=== PATIENT | female | born 1975 | race Caucasian/White ===

== ENCOUNTER 2018-04-27 05:55 | Observation (INO) | payer OTHER, BC ==
[2018-04-17 16:03] VITALS: BMI 29.0
[~2018-04-27] VITALS: Ht 167.6 cm; Wt 82.0 kg
[2018-04-27] VITALS (15 sets, daily range): BP systolic 117–138; BP diastolic 72–86; PULSE 57–87; TEMP 36.4–36.9; O2SAT 97–100; Ht 167.6 cm; Wt 82.0 kg
[~2018-04-27 05:55] MED LIST: CYCL5TAB PO; NAPR-1231 PO
[2018-04-27] MEDS ORDERED: CeleBREX 200 MG CAP PO SCH (06:00)
[2018-04-27] MEDS ORDERED: GABAPENTIN 900 MG PO SCH (06:00)
[2018-04-27] MEDS ORDERED: LACTATED RINGER'S 1000ML 1,000 ML IV SCH (06:00)
[2018-04-27] MEDS ORDERED: ACETAMINOPHEN 500 MG TAB PO SCH (06:00)
[2018-04-27] MEDS ORDERED: CEFAZOLIN 2000MG IV PUSH 15 ML IV SCH (06:00)
[2018-04-27] MEDS ORDERED: MIDAZOLAM HCL 1 MG/ML 2ML VIAL ONE (06:57)
[2018-04-27] MEDS ORDERED: FENTANYL CITRATE INJ 50 MCG/1 ML 2 ML VIAL ONE ×4 (06:57→09:11)
[2018-04-27] MEDS ORDERED: BACITRACIN 50000 UNIT VIAL ONE (07:08)
--- NOTE | 2018-04-27 07:40 | History & Physical Bridge Note ---
H&P Re-Evaluation Bridge Note: I have examined the patient, reviewed the History & Physical and in the interval since the performance of the History & Physical I have noted the following changes of clinical significance: No changes noted
--- NOTE | 2018-04-27 07:42 | History and Physical ---
History & Physical Date Apr 27, 2018. Chief Complaint Neck and arm pain History of Present Illness The patient is a 43 year old female with complaints of neck and arm pain Additional History Hepatic Disease: No Endocrine Disorder: No Kidney Disease: No Hypertension: No Heart Disease: No Bleeding Tendencies: No Infectious Diseases: No Allergies Coded Allergies: No Known Allergies (Unverified , 04/27/18) Home Medications Scheduled Naproxen (Naproxen), 1 TAB PO BID Scheduled PRN Cyclobenzaprine Hcl (Flexeril), 1 TAB PO HS PRN for Sleep Physical Examination Skin: warm/dry, no rash Eyes: normal inspection, EOMI, sclerae normal ENT: normal ENT inspection, pharynx normal Head: normocephalic, atraumatic Neck: supple, no adenopathy, trachea midline Respiratory/Chest: lungs clear, normal breath sounds, no respiratory distress Cardiovascular: regular rate, rhythm, no edema, no murmur Abdomen / GI: normal bowel sounds, non tender Back: normal inspection Extremities: normal inspection, normal range of motion Neurologic/Psych: no motor/sensory deficits, alert, normal reflexes, oriented x 3 Diagnosis Cervical spinal stenosis with radiculopathy Plan of Treatment C6 corpectomy ACDF C4-5
[2018-04-27] MEDS ORDERED: PHENYLEPHRINE 100MCG/ML 5ML SYR IV PRN (08:00)
[2018-04-27] MEDS ORDERED: ONDANSETRON INJ 2 MG/ML 2 ML VIAL IV PRN ×2 (08:00→10:15)
[2018-04-27] MEDS ORDERED: HYDROmorphone INJ 0.5 MG/0.5 ML SYR IV PRN ×2 (08:00→10:15)
[2018-04-27] MEDS ORDERED: NALOXONE HCL 0.4 MG/1 ML VIAL/CARP IV PRN ×2 (08:00→10:15)
[2018-04-27] MEDS ORDERED: LABETALOL HCL IV 5 MG/ML 20ML IV PRN (08:00)
[2018-04-27] MEDS ORDERED: ATROPINE SULFATE 0.1 MG/ML 5ML SYR IV PRN (08:00)
[2018-04-27] MEDS ORDERED: MEPERIDINE HCL 25 MG/ML CARP IV PRN (08:00)
[2018-04-27] MEDS ORDERED: EpHEDrine SULFATE INJ 50 MG/ML AMP IV PRN (08:00)
[2018-04-27] MEDS ORDERED: FLUMAZENIL 0.1 MG/1 ML 10 ML VIAL IV PRN (08:00)
[2018-04-27] MEDS ORDERED: HYDROmorphone INJ 2 MG/ML SYR/VIAL ONE ×3 (08:17→09:12)
[2018-04-27] MEDS ORDERED: LARYING-O-JET KIT (LTA) ONE (08:37)
[2018-04-27] MEDS ORDERED: ALBUTEROL HFA INHALER 8.5 GM INH ONE ×2 (08:37→10:37)
[2018-04-27] MEDS ORDERED: PROPOFOL IV EMULSION 10 MG/ML 20 ML VIAL ONE (09:12)
[2018-04-27] MEDS ORDERED: ONDANSETRON INJ 2 MG/ML 2 ML VIAL ONE ×2 (09:12)
[2018-04-27] MEDS ORDERED: DEXAMETHASONE SOD INJ 4 MG/ML VIAL ONE (09:12)
[2018-04-27] MEDS ORDERED: LIDOCAINE HCL 2% 2 ML VIAL (20MG/ML) ONE (09:12)
[2018-04-27] MEDS ORDERED: GLYCOPYRROLATE INJ 0.2 MG/ML VIAL ONE (09:12)
[2018-04-27] MEDS ORDERED: ROCURONIUM BROMIDE 10 MG/ML 5 ML VIAL ONE ×2 (09:12→11:49)
[2018-04-27] MEDS ORDERED: NEOSTIGMINE METHYLSULFATE 1 MG/ML 10ML VIAL ONE (09:12)
[2018-04-27] MEDS ORDERED: FLOSEAL HEMOSTATIC MATRIX 10ML TOP ONE (09:59)
--- NOTE | 2018-04-27 10:10 | [facility] Operative Report ---
Operative Report Operative Date Apr 27, 2018. Pre-Operative Diagnosis Cervical spinal stenosis with radiculopathy Post-Operative Diagnosis Cervical spinal stenosis with radiculopathy Procedure(s) Performed 1. Anterior corpectomy C6. #2 anterior cervical discectomy C4-5. #3 anterior cervical arthrodesis C4-C5 C5-C7. #4 placement peek cage 7 mm in height C4-5 25 mm in height C5-C7. #5 patient of locally harvested morselized autograft combined with DBM in the cage. 6 application of dawkins plate and screws from C5-C7. Surgeon Dr. Padron Stave Log Cut Off Saw Operator Surgeon(s) YAJAIRA Taylor Estimated Blood Loss 25 Findings Severe spinal stenosis Specimens none per surgeon Description of Procedure Patient was met with preoperatively case discussed all questions addressed. After informed consent obtained patient was taken to the operative suite underwent intubation placed in supine position on the Andrei table to head [place] headholder. All bony prominences well-padded eyes inspected to ensure no external pressure placed upon. This point the anterior cervical spine was prepped and draped in normal sterile fashion. The assistance of fluoroscopy identified the C5-6 disc space and a transverse incision was placed along the right anterior aspect of the cervical spine overlying this region. Sharp dissection with the assistance of bipolar electrocautery was performed down to and exposing the anterior cervical spine from C4-C7. A self-retaining retractor was placed. I verified my position with fluoroscopy. Then performed a complete discectomy of C5-6 up to the uncovertebral joints bilaterally followed by C6-7. Distracting pins were then placed in C6 5 and C7 to distract across the C6 vertebral complete corpectomy was then performed removing all posterior annular fibers longitudinal ligament bilateral foraminotomies addressing severe stenosis disc herniations. Plates were burred to subcortical bleeding bone and a 25 mm peek cage filled with DBM and local autograft tapped in position. Distracting apparatus was removed. I proceeded to see 4 5. Again complete discectomy performed up to the uncovertebral joints bilaterally. Distracting pins again utilized. I removed all posterior fibers longitudinal ligament bilateral foraminotomies performed endplates burred to subcortical bleeding bone and a 7 mm peek cage filled with local autograft and DBM tapped in position. Distracting apparatus was removed all anterior osteophytes burred to a smooth cortical surface and a dawkins plate and screws applied with the assistance of fluoroscopy. Incision was then copiously irrigated explored to ensure there was no damage to surrounding soft tissues remaining bleeding. A 10 round FREDDY drain inserted. Incision was then closed with 2 Vicryl in a fashion for Monocryl for fast closure Steri-Strips sterile dressings placed. She will continue to PACU stable condition. Please note Deep Victoria was present throughout the entire procedure involved in patient positioning of the surgery and final skin closure. I attest to the content of the Intraoperative Record and any orders documented therein. Any exceptions are noted below.
[2018-04-27] MEDS ORDERED: RACEPINEPHRINE 2.25% NEBU SOLN 0.5 ML VIAL INH PRN (10:15)
[2018-04-27] MEDS ORDERED: DO NOT ADMINISTER PNEUMOCOCCAL VACCINE PRN (10:15)
[2018-04-27] MEDS ORDERED: DEXAMETHASONE INJ 8 MG in SYRINGE 0 ML IV PRN (10:15)
[2018-04-27] MEDS ORDERED: DiphenhydrAMINE HCL 50 MG/ML VIAL IV PRN (10:15)
[2018-04-27] MEDS ORDERED: LORAZEPAM INJ 0.5 MG in SYRINGE 0.75 ML IV PRN (10:15)
[2018-04-27] MEDS ORDERED: MAGNESIUM HYDROXIDE SUSP 30 ML UDC PO PRN (10:15)
[2018-04-27] MEDS ORDERED: ACETAMINOPHEN IV 100 ML IV PRN (10:15)
[2018-04-27] MEDS ORDERED: DO NOT ADMINISTER FLU VACCINE PRN (10:15)
[2018-04-27] MEDS ORDERED: LORAZEPAM 0.5 MG TAB PO PRN (10:15)
[2018-04-27] MEDS: FENTANYL CITRATE INJ 50 MCG/1 ML 2 ML VIAL IV PRN ×4 (10:34→11:10)
[2018-04-27] MEDS ORDERED: ESMOLOL HCL 10 MG/ML 10 ML VIAL ONE ×2 (10:37)
--- NOTE | 2018-04-27 10:54 | DIAGNOSTIC IMAGING REPORT ---
CERVICAL 2 OR 3 VIEWS CLINICAL HISTORY: 43 years-old Female presenting with C6 CORPECTOMY, C4-C5 ACDF. TECHNIQUE: 2 fluoroscopic image(s) recorded as part of an intraoperative procedure. COMPARISON: None. FINDINGS/IMPRESSION: Anterior cervical discectomy and fusion of C4-C7 with C6 corpectomy. Straightening of normal cervical lordosis. Endotracheal tube projects over the upper thoracic trachea. Please see surgical report for further details. Fluoroscopy dosage (mGy): 0.83. Fluoroscopy time: 9.9 seconds. Number or time of fluoroscopic spot images: 0. Electronically signed by: Brenton Bermudez M.D. 04/27/2018 10:52 AM Dictated Date/Time: 04/27/2018 10:51 AM
--- NOTE | 2018-04-27 11:00 | Anesthesiology Progress Note ---
Anesthesia Post Op Note Date & Time Apr 27, 2018 at 11:00 Vital Signs Pain Intensity: 3 Vital Signs Past 12 Hours Date Time Temp Pulse Resp B/P (MAP) Pulse Ox O2 Delivery O2 Flow Rate FiO2 04/27/18 10:24 36.1 83 21 165/100 94 Oxymask 10 04/27/18 06:17 36.9 73 18 138/86 (103) 100 Room Air Notes Mental Status: alert / awake / arousable, participated in evaluation Pt Amnestic to Procedure: Yes Nausea / Vomiting: adequately controlled Pain: adequately controlled Airway Patency, RR, SpO2: stable & adequate BP & HR: stable & adequate Hydration State: stable & adequate Anesthetic Complications: no major complications apparent
[2018-04-27] MEDS ORDERED: SCOPOLAMINE 1.5 MG TDSY TD SCH (12:30)
[2018-04-27] MEDS: SODIUM CHLORIDE 0.9% 1000ML 1,000 ML IV SCH ×2 (13:00→22:43)
[2018-04-27] MEDS ORDERED: RXC5 PO (13:01)
--- NOTE | 2018-04-27 13:02 | Discharge Instructions ---
Discharge Instructions Date of Service Apr 27, 2018. Admission Reason for Admission: Cervical Spinal Stenosis Discharge Discharge Diagnosis / Problem: cervical stenosis Discharge Goals Goal(s): Improve function Activity Recommendations Activity Limitations: per Instructions/Follow-up section . Instructions / Follow-Up Instructions / Follow-Up ACTIVITY RECOMMENDATIONS: SELF CARE INSTRUCTIONS AFTER CERVICAL FUSIONS 1. No smoking. Smoking drastically decreases the chance of a solid fusion. 2. No bending, lifting more than 5 pounds, or twisting (roll like a log when turning in bed). 3. You may shower 3 days after surgery. Thoroughly dry wound. Do not soak in the tub. 4. Cervical collar: Must be worn at all times including sleeping. You may remove the brace only to bath, eat and if you are sitting in a recliner. 5. Please walk as much as you can for exercise. Gradually increase the distance that you walk as your endurance increases. SPECIAL CARE INSTRUCTIONS: VERY IMPORTANT TO READ AND REVIEW A. Do not take any anti-inflammatory medications (i.e. Indocin, Advil, Aspirin, Naprosyn, Aleve, Motrin, etc.) as these may inhibit the chance of a solid fusion. Tylenol is okay to take. B. Your surgical incision has been closed with a cosmetic suture under the skin that will dissolve in about 6 weeks. In 14 days, you can use a pair of clean scissors and cut the suture that is left outside of the skin at the ends of your incision. C. Complications are uncommon, but please contact us if you have any signs or symptoms of: 1. wound infection (fever higher than 102.5 degrees F, redness, separation of wound, drainage, or increasing pain from the incision) 2. blood clots in legs (pain, swelling, redness and warmth in legs) 3. urinary tract infection (fever higher than 102.5 degrees, burning upon urination or increased frequency of urination) 4. nerve problems (inability to walk on your toes or heels, numbness, loss of bowel or bladder control) 5. any other symptoms that concern you. D. Please call the office at if you have any concerns or questions about your operation or recovery. MANAGING PAIN AFTER SPINAL SURGERY 1. Narcotic medication is intended for short-term use and will be provided for surgical pain. Surgical pain usually lasts for a period of 4-6 weeks. Narcotic medication includes Percocet, Vicodin, Darvocet, Tylenol #3 or Lortab. 2. Longer-term pain is more appropriately treated with non-narcotic medication such as Tylenol ES. 3. Muscle spasm is not appropriately treated with narcotics. Muscle relaxers such as Soma, Flexeril or Skelaxin can be used along with Tylenol ES. 4. Remember that we all live with some "aches and pains". This is not unusual or uncommon after an injury or as we get older. 5. We will provide appropriate medication within the normal guidelines of their prescribed use. We will also be very cautious and aware of potential abuse and extended duration of patients' medication needs. 6. Please allow 2-3 days to process refills. Prescriptions will not be mailed but must be picked up at the office. FOLLOW UP VISIT: Keep your scheduled follow-up appointment. Any questions, please call the office at . Current Hospital Diet Patient's current hospital diet: Clear Liquid Diet Discharge Diet Recommended Diet: Regular Diet Procedures Procedures Performed: 1. Anterior corpectomy C6. #2 anterior cervical discectomy C4-5. #3 anterior cervical arthrodesis C4-C5 C5-C7. #4 placement peek cage 7 mm in height C4-5 25 mm in height C5-C7. #5 patient of locally harvested morselized autograft combined with DBM in the cage. 6 application of dawkins plate and screws from C5-C7. Pending Studies Studies pending at discharge: no Medical Emergencies . Who to Call and When: Medical Emergencies: If at any time you feel your situation is an emergency, please call 911 immediately. . Non-Emergent Contact Non-Emergency issues call your: Primary Care Provider . "Provider Documentation" section prepared by Don Padron. .
[2018-04-27] MEDS: OXYCODONE HCL IR 5 MG TAB (IMMEDIATE RELEASE) PO PRN ×2 (13:25→19:13)
[2018-04-27] MEDS ORDERED: IV FLUIDS COMPLETED PRN (13:45)
[2018-04-27] MEDS: CHECK SCOPOLAMINE PATCH PLACEMENT SCH ×2 (16:00→23:22)
[2018-04-27] MEDS: CEFAZOLIN IV 2,000 MG in SYRINGE 0 ML IV SCH ×2 (16:39→23:22)
[2018-04-27] MEDS: DOCUSATE SODIUM 100 MG CAP PO SCH (19:14)
[2018-04-28] VITALS (8 sets, daily range): BP systolic 109–123; BP diastolic 70–84; PULSE 61–77; TEMP 36.6–36.7; O2SAT 96–100
[2018-04-28] MEDS: OXYCODONE HCL IR 5 MG TAB (IMMEDIATE RELEASE) PO PRN ×2 (03:11→08:13)
[2018-04-28] MEDS: CEFAZOLIN IV 2,000 MG in SYRINGE 0 ML IV SCH (08:12)
[2018-04-28] MEDS: CHECK SCOPOLAMINE PATCH PLACEMENT SCH (08:12)
[2018-04-28] MEDS: DOCUSATE SODIUM 100 MG CAP PO SCH (08:13)
--- NOTE | 2018-04-28 09:22 | Discharge Summary ---
Orthopedic Discharge Summary Admission Date/Reason Apr 27, 2018 at 11:20 Cervical Spinal Stenosis. Discharge Date/Disposition Apr 28, 2018 Home Diagnosis Principal Diagnosis: Cervical spinal stenosis Admission Physical Exam As per Admitting History & Physical. Hospital Course Patient underwent anterior cervical corpectomy and fusion tolerated as well as taken to the orthopedic floor postoperatively. Postop day #1 she had no swallowing issues no hoarseness arm symptoms markedly improved. Subsequently she was discharged home. Discharge orders and instructions found in the chart for further review. Discharge Instructions Please refer to the electronic Patient Visit Report (Discharge Instructions) for additional information.
[2018-04-29] MEDS ORDERED: BISACODYL 5 MG TABEC PO PRN (06:00)
[2018-04-29] MEDS ORDERED: BISACODYL 10 MG SUPP PR PRN (06:00)
[2018-04-29] MEDS ORDERED: POLYETHYLENE (MIRALAX) 17 GM PACK PO SCH (09:00)
== END 2018-04-28 10:47 | disposition home or self-care (01) ==
LOC: C.ACU 05:55 → ENRESERV 11:10 → C.3E 11:20
PROVIDERS: ADMIT Orthopaedic Surgery Orthopaedic Surgery of the Spine; ATTEND Orthopaedic Surgery Orthopaedic Surgery of the Spine
DX: M48.02 Spinal stenosis, cervical region (principal); M54.12 Radiculopathy, cervical region; F17.200 Nicotine dependence, unspecified, uncomplicated